=== PATIENT | female | born 2000 | race African-American/Black ===

== ENCOUNTER 2022-10-15 18:06 | Emergency (ER) | payer SELFPAY ==
[~2022-10-15] VITALS: Ht 167.6 cm; Wt 80.0 kg
[2022-10-15 20:43] LABS: BASO% 0.2 % (0-3); HEMATOCRIT 39.4 % (37.0-47.0); HEMOGLOBIN 12.6 g/dl (12.0-16.0); IMMATURE GRANULOCYTES 0.2 % (0.0-5.0); LYMPH% 31.8 % (15-41); MEAN CELL VOLUME 80.6 fL CALC (80.0-100.0); MEAN CORPUSCULAR HGB 25.8 pG CALC (26.0-32.0); MONO% 10.1 % (2-13); NEUT# 3.19 thou/uL (2.00-7.15); NEUT% 57.7 % (42-76); RED BLOOD COUNT 4.89 mill/uL (4.20-5.60)
[2022-10-15 20:58] LABS: ALBUMIN 4.5 g/dL (3.2-5.0); ALKALINE PHOSPHATASE 63 u/l (38-126); ANION GAP 10 (6-22 (CALC)); BILIRUBIN, TOTAL 0.7 mg/dL (0.02-1.3); BUN 9 mg/dL (7-17); BUN/CREATININE RATIO 12 (12-20 (CALC)); CARBON DIOXIDE 23 mmol/l (22-30); CHLORIDE 106 mmol/l (95-108); CREATININE 0.8 mg/dL (0.5-1.0); GFR FOR AFR.AMER. > 60 ML/MIN (>=60 (CALC)); GFR OTHER RACES > 60 ML/MIN (>=60 (CALC)); POTASSIUM 3.7 mmol/l (3.5-5.1); SGOT/AST 25 u/l (14-36); SODIUM 135 mmol/l (137-146); TOTAL PROTEIN 8.2 g/dL (6.3-8.2)
[2022-10-15 22:37] VITALS: BP 124/81
[2022-10-15 22:45] VITALS: BP 125/77
[2022-10-15 23:00] VITALS: BP 116/74
[2022-10-15] MEDS ORDERED: KEFLEX500 MG PO (23:46)
[2022-10-15] MEDS ORDERED: BACTRIM DS1 TAB PO (23:46)
[2022-10-15] MEDS ORDERED: ULTRAM50 MG PO (23:46)
[2022-10-15 23:52] VITALS: BP 117/89
== END 2022-10-16 00:15 | disposition home or self-care (01) | DRG 601 ==
LOC: ED 18:06
PROVIDERS: Emergency Medicine
DX: N61.0 Mastitis without abscess (principal)
CPT/HCPCS: Q9967